=== PATIENT | female | born 1995 | race African-American/Black ===

== ENCOUNTER → 2023-08-08 | Emergency (ER) | payer SELFPAY ==
[~2023-08-08] MED LIST: BUPIVACAINE 0.25% PF 10 ML VIAL ONE; LIDOCAINE 1% 20 ML MDV ONE
--- OUTSIDE RECORDS SUMMARY | 2023-08-08 10:49 | XMS REPORT | Continuity of Care Document ---
Author Name Unknown Address [address] [facility] [address] [place] [address] [facility] Address [address] [facility] [address] [place] [address] Care Team Providers Care Medical Registrar Name Role Phone TANYA ALEMAN Attending Clinician Unavaillea Bustos Attending Clinician Unavailable FAINA LAUREANO Attending Clinician Unavailable JUHI GAUTHIER Attending Clinician Unavailable ERNST CHRISTIANSON Attending Clinician Unavailable DESI Attending Clinician Unavailab DENNY Guaman Attending Clinician Unavailamie Pan_Roberth Attending Clinician Unavailable RUTH MATAMOROS Attending Clinician Unavail able JESE BLAND MD(DO NOT USE) Attending Clinic moustapha Unavailable GARY RECIO Attending Clinician Unavailable PERCY SONI Attending Clinician Unavailable LENORA VALERO Attending Clinician Unavailable MARTHA LLAMAS Attending Clinician Unavailable CAMILA BROWNLEE Attending Clinician Unavailable ROBERT DENISE Attending Clinician Unavailable CHRIS BAZAN Attending Clinician UnaSAHRA Peters Attending Clinician Unavailable MACARIO MCGILL Attending Clinician UnavailMARIA DEL ROSARIO Herrera Attending Clinician Unavailab ALAN laws BA Attending Clinician Unavailable MARLENY DIAZ Attending Clinician Unavailab HERB Johnston Attending Clinician Unavailable Gerardo_Lenore Admitting Clinician Unavailable DESI Admitting Clinician Unavailab eusebia Bello Admitting Clinician Unavailable DENNY CARRILLO Admitting Clinician UnavailSAHRA Lyn Admitting Clinician Unavailable Payers Payer Name Policy Type Policy Number Effective Date Expirati on Date Source [place] [facility] [employer] [place]MEDICAID) [id number] [facility] [place] (MEDICA[place] [id number] 2016 00:00:00 Problems Condition Name Condition Details Condition Category Status Onset Date Resolution Date Last Treatment Date Treating Clinician Comments Source Uses depot contracept ion Uses Depot Contracept ion Problem Active 04-07 00:00: 00 [facility] Gynecologi c examinatio n Gynecologi c Examinatio n Problem Active 04-07 00:00: 00 [facility] Social History Smoking Status Start Date Stop Date Source Never Smoker [facility] Medications Ordered Medication Name Filled Medication Name Start Date Stop Date Current Medication? Ordering Clinician Indication Dosage Frequency Signature (SIG) Comments Components Source medroxyprog esterone 150 mg/mL intramuscul ar suspensionI nject 1 mL every 3 months by intramuscul ar route. medroxyprog esterone 150 mg/mL intramuscul ar suspensionI nject 1 mL every 3 months by intramuscul ar route. 2022-07 018 09:20: 44 No medroxypro gesterone 150 mg/mL intramuscu lar suspension Inject 1 mL every 3 months by intramuscu lar route. [facility] medroxyprog esterone 150 mg/mL intramuscul ar suspensionI nject 1 mL every 3 months by intramuscul ar route. medroxyprog esterone 150 mg/mL intramuscul ar suspensionI nject 1 mL every 3 months by intramuscul ar route. 17 14:49: 31 No medroxypro gesterone 150 mg/mL intramuscu lar suspension Inject 1 mL every 3 months by intramuscu lar route. [facility] Depo-Principal Cyber Engineer a 150 mg/mL intramuscul ar syringeInje ct 1 mL every 3 months by intramuscul ar route. Depo-Principal Cyber Engineer a 150 mg/mL intramuscul ar syringeInje ct 1 mL every 3 months by intramuscul ar route. 413 16:23: 49 No Depo-Prove ra 150 mg/mL intramuscu lar syringeInj ect 1 mL every 3 months by intramuscu lar route. [facility] Depo-Principal Cyber Engineer a 150 mg/mL intramuscul ar syringeInje ct 1 mL every 3 months by intramuscul ar route. [employer]Principal Cyber Engineer a 150 mg/mL intramuscul ar syringeInje ct 1 mL every 3 months by intramuscul ar route. 07-22 09:44: 02 No Depo-Prove ra 150 mg/mL intramuscu lar syringeInj ect 1 mL every 3 months by intramuscu lar route. [facility] medroxyprog esterone 150 mg/mL intramuscul ar suspensionI nject 1 mL every 3 months by intramuscul ar route. medroxyprog esterone 150 mg/mL intramuscul ar suspensionI nject 1 mL every 3 months by intramuscul ar route. 2021-07 0 15:06: 25 No medroxypro gesterone 150 mg/mL intramuscu lar suspension Inject 1 mL every 3 months by intramuscu lar route. [facility] medroxyprog esterone 150 mg/mL intramuscul ar suspensionI nject 1 mL every 3 months by intramuscul ar route. medroxyprog esterone 150 mg/mL intramuscul ar suspensionI nject 1 mL every 3 months by intramuscul ar route. 01-13 14:29: 33 No medroxypro gesterone 150 mg/mL intramuscu lar suspension Inject 1 mL every 3 months by intramuscu lar route. [facility] cyclobenzap rine 10 mg tablet TAKE 1 TABLET BY MOUTH EVERY 6 HOURS NEEDED FOR MUSCLE SPASMS cyclobenzap rine 10 mg tablet TAKE 1 TABLET BY MOUTH EVERY 6 HOURS NEEDED FOR MUSCLE SPASMS No cyclobenza ramon 10 mg tablet TAKE 1 TABLET BY MOUTH EVERY 6 HOURS NEEDED FOR MUSCLE SPASMS [facility] Depo-Principal Cyber Engineer a 150 mg/mL intramuscul ar syringe Inject 1 mL every 3 months by intramuscul ar route. Depo-Principal Cyber Engineer a 150 mg/mL intramuscul ar syringe Inject 1 mL every 3 months by intramuscul ar route. No 1mL Depo-Prove ra 150 mg/mL intramuscu lar syringe Inject 1 mL every 3 months by intramuscu lar route. [facility] medroxyprog esterone 150 mg/mL intramuscul ar suspension Inject 1 mL every 3 months by intramuscul ar route. medroxyprog esterone 150 mg/mL intramuscul ar suspension Inject 1 mL every 3 months by intramuscul ar route. No 1mL medroxypro gesterone 150 mg/mL intramuscu lar suspension Inject 1 mL every 3 months by intramuscu lar route. [facility] naproxen 500 mg tablet TAKE ONE (1) TABLET(S) BY MOUTH TWICE A DAY FOR PAIN. naproxen 500 mg tablet TAKE ONE (1) TABLET(S) BY MOUTH TWICE A DAY FOR PAIN. No naproxen 500 mg tablet TAKE ONE (1) TABLET(S) BY MOUTH TWICE A DAY FOR PAIN. [facility] oseltamivir 75 mg capsule TAKE ONE (1) CAPSULE(S) BY MOUTH TWICE A DAY FOR FLU. oseltamivir 75 mg capsule TAKE ONE (1) CAPSULE(S) BY MOUTH TWICE A DAY FOR FLU. No oseltamivi r 75 mg capsule TAKE ONE (1) CAPSULE(S) BY MOUTH TWICE A DAY FOR FLU. [facility] tinidazole 500 mg tablet TAKE 4 TABLETS BY MOUTH EVERY DAY FOR 2 DAYS DIRECTED tinidazole 500 mg tablet TAKE 4 TABLETS BY MOUTH EVERY DAY FOR 2 DAYS DIRECTED No tinidazole 500 mg tablet TAKE 4 TABLETS BY MOUTH EVERY DAY FOR 2 DAYS DIRECTED [facility] cyclobenzap rine 10 mg tablet TAKE 1 TABLET BY MOUTH EVERY 6 HOURS NEEDED FOR MUSCLE SPASMS cyclobenzap rine 10 mg tablet TAKE 1 TABLET BY MOUTH EVERY 6 HOURS NEEDED FOR MUSCLE SPASMS No cyclobenza ramon 10 mg tablet TAKE 1 TABLET BY MOUTH EVERY 6 HOURS NEEDED FOR MUSCLE SPASMS [facility] medroxyprog esterone 150 mg/mL intramuscul ar suspension Inject 1 mL every 3 months by intramuscul ar route. medroxyprog esterone 150 mg/mL intramuscul ar suspension Inject 1 mL every 3 months by intramuscul ar route. No 1mL medroxypro gesterone 150 mg/mL intramuscu lar suspension Inject 1 mL every 3 months by intramuscu lar route. [facility] naproxen 500 mg tablet TAKE ONE (1) TABLET(S) BY MOUTH TWICE A DAY FOR PAIN. naproxen 500 mg tablet TAKE ONE (1) TABLET(S) BY MOUTH TWICE A DAY FOR PAIN. No naproxen 500 mg tablet TAKE ONE (1) TABLET(S) BY MOUTH TWICE A DAY FOR PAIN. [facility] ciprofloxac in 500 mg tablet TAKE 1 TABLET BY MOUTH TWICE DAILY FOR INFECTION ciprofloxac in 500 mg tablet TAKE 1 TABLET BY MOUTH TWICE DAILY FOR INFECTION No ciprofloxa krysten 500 mg tablet TAKE 1 TABLET BY MOUTH TWICE DAILY FOR INFECTION [facility] Depo-Principal Cyber Engineer a 150 mg/mL intramuscul ar syringe Inject 1 mL every 3 months by intramuscul ar route. Depo-Principal Cyber Engineer a 150 mg/mL intramuscul ar syringe Inject 1 mL every 3 months by intramuscul ar route. No 1mL Depo-Prove ra 150 mg/mL intramuscu lar syringe Inject 1 mL every 3 months by intramuscu lar route. [facility] medroxyprog esterone 150 mg/mL intramuscul ar suspension Inject 1 mL every 3 months by intramuscul ar route. medroxyprog esterone 150 mg/mL intramuscul ar suspension Inject 1 mL every 3 months by intramuscul ar route. No 1mL medroxypro gesterone 150 mg/mL intramuscu lar suspension Inject 1 mL every 3 months by intramuscu lar route. [facility] naproxen 500 mg tablet TAKE 1 TABLET BY MOUTH TWICE DAILY FOR PAIN naproxen 500 mg tablet TAKE 1 TABLET BY MOUTH TWICE DAILY FOR PAIN No naproxen 500 mg tablet TAKE 1 TABLET BY MOUTH TWICE DAILY FOR PAIN [facility] ondansetron HCl 4 mg tablet TAKE 1 TABLET BY MOUTH EVERY 8 HOURS NEEDED FOR NAUSEA OR VOMITING ondansetron HCl 4 mg tablet TAKE 1 TABLET BY MOUTH EVERY 8 HOURS NEEDED FOR NAUSEA OR VOMITING No ondansetro n HCl 4 mg tablet TAKE 1 TABLET BY MOUTH EVERY 8 HOURS NEEDED FOR NAUSEA OR VOMITING [facility] cephalexin 250 mg capsule TAKE 1 CAPSULE BY MOUTH 4 TIMES DAILY cephalexin 250 mg capsule TAKE 1 CAPSULE BY MOUTH 4 TIMES DAILY No cephalexin 250 mg capsule TAKE 1 CAPSULE BY MOUTH 4 TIMES DAILY [facility] ciprofloxac in 500 mg tablet TAKE 1 TABLET BY MOUTH TWICE DAILY FOR INFECTION ciprofloxac in 500 mg tablet TAKE 1 TABLET BY MOUTH TWICE DAILY FOR INFECTION No ciprofloxa krysten 500 mg tablet TAKE 1 TABLET BY MOUTH TWICE DAILY FOR INFECTION [facility] Depo-Principal Cyber Engineer a 150 mg/mL intramuscul ar syringe Inject 1 mL every 3 months by intramuscul ar route. Depo-Principal Cyber Engineer a 150 mg/mL intramuscul ar syringe Inject 1 mL every 3 months by intramuscul ar route. No 1mL Depo-Prove ra 150 mg/mL intramuscu lar syringe Inject 1 mL every 3 months by intramuscu lar route. [facility] medroxyprog esterone 150 mg/mL intramuscul ar suspension Inject 1 mL every 3 months by intramuscul ar route. medroxyprog esterone 150 mg/mL intramuscul ar suspension Inject 1 mL every 3 months by intramuscul ar route. No 1mL medroxypro gesterone 150 mg/mL intramuscu lar suspension Inject 1 mL every 3 months by intramuscu lar route. [facility] naproxen 500 mg tablet TAKE 1 TABLET BY MOUTH TWICE DAILY FOR PAIN naproxen 500 mg tablet TAKE 1 TABLET BY MOUTH TWICE DAILY FOR PAIN No naproxen 500 mg tablet TAKE 1 TABLET BY MOUTH TWICE DAILY FOR PAIN [facility] ondansetron HCl 4 mg tablet TAKE 1 TABLET BY MOUTH EVERY 8 HOURS NEEDED FOR NAUSEA OR VOMITING ondansetron HCl 4 mg tablet TAKE 1 TABLET BY MOUTH EVERY 8 HOURS NEEDED FOR NAUSEA OR VOMITING No ondansetro n HCl 4 mg tablet TAKE 1 TABLET BY MOUTH EVERY 8 HOURS NEEDED FOR NAUSEA OR VOMITING [facility] medroxyprog esterone 150 mg/mL intramuscul ar suspension Inject 1 mL every 3 months by intramuscul ar route. medroxyprog esterone 150 mg/mL intramuscul ar suspension Inject 1 mL every 3 months by intramuscul ar route. No 1mL medroxypro gesterone 150 mg/mL intramuscu lar suspension Inject 1 mL every 3 months by intramuscu lar route. [facility] medroxyprog esterone 150 mg/mL intramuscul ar suspension Inject 1 mL every 3 months by intramuscul ar route. medroxyprog esterone 150 mg/mL intramuscul ar suspension Inject 1 mL every 3 months by intramuscul ar route. No 1mL medroxypro gesterone 150 mg/mL intramuscu lar suspension Inject 1 mL every 3 months by intramuscu lar route. [facility] medroxyprog esterone 150 mg/mL intramuscul ar syringe medroxyprog esterone 150 mg/mL intramuscul ar syringe No medroxypro gesterone 150 mg/mL intramuscu lar syringe [facility] medroxyprog esterone 150 mg/mL intramuscul ar suspension Inject 1 mL every 3 months by intramuscul ar route. medroxyprog esterone 150 mg/mL intramuscul ar suspension Inject 1 mL every 3 months by intramuscul ar route. No 1mL medroxypro gesterone 150 mg/mL intramuscu lar suspension Inject 1 mL every 3 months by intramuscu lar route. [facility] medroxyprog esterone 150 mg/mL intramuscul ar syringe Inject 1 mL every 3 months by intramuscul ar route. medroxyprog esterone 150 mg/mL intramuscul ar syringe Inject 1 mL every 3 months by intramuscul ar route. No medroxypro gesterone 150 mg/mL intramuscu lar syringe Inject 1 mL every 3 months by intramuscu lar route. [facility] Vital Signs Vital Name Observation Time Observation Value Comments S ource BP Diastolic 2023-07-28 00:00:00 93 mm[Hg] [facility] BMI (Body Mass Index) 2023-07-28 00:00:00 31.4 kg/m2 [facility] BP Systolic 2023-07-28 00:00:00 134 mm[Hg] [facility] Height 2023-07-28 00:00:00 70 [in_i] [facility] Body Weight 2023-07-28 00:00:00 218.6 [lb_av] [facility] BMI (Body Mass Index) 2023-04-27 00:00:00 31.8 kg/m2 [facility] BP Systolic 2023-04-27 00:00:00 124 mm[Hg] [facility] Body Weight 2023-04-27 00:00:00 221.3 [lb_av] [facility] Height 2023-04-27 00:00:00 70 [in_i] [facility] BP Diastolic 2023-04-27 00:00:00 83 mm[Hg] [facility] BP Diastolic 2023-01-24 00:00:00 96 mm[Hg] [facility] Height 2023-01-24 00:00:00 70 [in_i] [facility] BMI (Body Mass Index) 2023-01-24 00:00:00 31.8 kg/m2 [facility] BP Systolic 2023-01-24 00:00:00 133 mm[Hg] [facility] Body Weight 2023-01-24 00:00:00 221.3 [lb_av] [facility] Height 2022-10-21 00:00:00 70 [in_i] [facility] BP Diastolic 2022-07-22 00:00:00 79 mm[Hg] [facility] Height 2022-07-22 00:00:00 70 [in_i] [facility] BMI (Body Mass Index) 2022-07-22 00:00:00 30.1 kg/m2 [facility] BP Systolic 2022-07-22 00:00:00 129 mm[Hg] [facility] Body Weight 2022-07-22 00:00:00 210 [lb_av] [facility] BP Diastolic 2022-04-15 00:00:00 96 mm[Hg] [facility] Height 2022-04-15 00:00:00 70 [in_i] [facility] BMI (Body Mass Index) 2022-04-15 00:00:00 29.9 kg/m2 [facility] BP Systolic 2022-04-15 00:00:00 137 mm[Hg] [facility] Body Weight 2022-04-15 00:00:00 208.2 [lb_av] [facility] BP Diastolic 2022-01-13 00:00:00 84 mm[Hg] [facility] Height 2022-01-13 00:00:00 70 [in_i] [facility] BMI (Body Mass Index) 2022-01-13 00:00:00 28.3 kg/m2 [facility] BP Systolic 2022-01-13 00:00:00 123 mm[Hg] [facility] Body Weight 2022-01-13 00:00:00 197.3 [lb_av] [facility] BP Diastolic 2021-10-12 00:00:00 91 mm[Hg] [facility] Height 2021-10-12 00:00:00 70 [in_i] [facility] BMI (Body Mass Index) 2021-10-12 00:00:00 26.8 kg/m2 [facility] BP Systolic 2021-10-12 00:00:00 126 mm[Hg] [facility] Body Weight 2021-10-12 00:00:00 186.7 [lb_av] [facility] BP Diastolic 2021-07-14 00:00:00 92 mm[Hg] [facility] Height 2021-07-14 00:00:00 70 [in_i] [facility] BMI (Body Mass Index) 2021-07-14 00:00:00 26.1 kg/m2 [facility] BP Systolic 2021-07-14 00:00:00 137 mm[Hg] [facility] Body Weight 2021-07-14 00:00:00 182 [lb_av] [facility] BP Diastolic 2021-04-13 00:00:00 87 mm[Hg] [facility] Height 2021-04-13 00:00:00 70 [in_i] [facility] BMI (Body Mass Index) 2021-04-13 00:00:00 26.5 kg/m2 [facility] BP Systolic 2021-04-13 00:00:00 128 mm[Hg] [facility] Body Weight 2021-04-13 00:00:00 184.9 [lb_av] [facility] BP Diastolic 2021-01-09 00:00:00 88 mm[Hg] [facility] Height 2021-01-09 00:00:00 70 [in_i] [facility] BMI (Body Mass Index) 2021-01-09 00:00:00 25.7 kg/m2 [facility] BP Systolic 2021-01-09 00:00:00 126 mm[Hg] [facility] Body Weight 2021-01-09 00:00:00 179 [lb_av] [facility] Height 2020-10-10 00:00:00 70 [in_i] [facility] BMI (Body Mass Index) 2020-10-10 00:00:00 24.1 kg/m2 [facility] BP Systolic 2020-10-10 00:00:00 124 mm[Hg] [facility] Body Weight 2020-10-10 00:00:00 167.7 [lb_av] [facility] BP Diastolic 2020-10-10 00:00:00 74 mm[Hg] [facility] BP Diastolic 2020-07-09 00:00:00 74 mm[Hg] [facility] Height 2020-07-09 00:00:00 70 [in_i] [facility] BMI (Body Mass Index) 2020-07-09 00:00:00 24.8 kg/m2 [facility] BP Systolic 2020-07-09 00:00:00 124 mm[Hg] [facility] Body Weight 2020-07-09 00:00:00 172.5 [lb_av] [facility] BP Diastolic 2020-04-07 00:00:00 83 mm[Hg] [facility] Height 2020-04-07 00:00:00 70 [in_i] [facility] BMI (Body Mass Index) 2020-04-07 00:00:00 24.6 kg/m2 [facility] BP Systolic 2020-04-07 00:00:00 125 mm[Hg] [facility] Body Weight 2020-04-07 00:00:00 171.2 [lb_av] [facility] BP Diastolic 2019-12-28 00:00:00 84 mm[Hg] [facility] Height 2019-12-28 00:00:00 70 [in_i] [facility] BMI (Body Mass Index) 2019-12-28 00:00:00 26.4 kg/m2 [facility] BP Systolic 2019-12-28 00:00:00 138 mm[Hg] [facility] Body Weight 2019-12-28 00:00:00 184.2 [lb_av] [facility] BP Diastolic 2019-09-24 00:00:00 92 mm[Hg] [facility] Height 2019-09-24 00:00:00 70 [in_i] [facility] BMI (Body Mass Index) 2019-09-24 00:00:00 24.7 kg/m2 [facility] BP Systolic 2019-09-24 00:00:00 126 mm[Hg] [facility] Body Weight 2019-09-24 00:00:00 172.1 [lb_av] [facility] BP Diastolic 2019-06-22 00:00:00 73 mm[Hg] [facility] Height 2019-06-22 00:00:00 70 [in_i] [facility] BMI (Body Mass Index) 2019-06-22 00:00:00 24.7 kg/m2 [facility] BP Systolic 2019-06-22 00:00:00 130 mm[Hg] [facility] Body Weight 2019-06-22 00:00:00 172 [lb_av] [facility] Height 2019-03-20 00:00:00 70 [in_i] [facility] BMI (Body Mass Index) 2019-03-20 00:00:00 26.5 kg/m2 [facility] Body Weight 2019-03-20 00:00:00 185 [lb_av] [facility] BP Diastolic 2019-02-12 00:00:00 93 mm[Hg] [facility] Height 2019-02-12 00:00:00 70 [in_i] [facility] BMI (Body Mass Index) 2019-02-12 00:00:00 29.3 kg/m2 [facility] BP Systolic 2019-02-12 00:00:00 134 mm[Hg] [facility] Body Weight 2019-02-12 00:00:00 204 [lb_av] [facility] BP Diastolic 2019-02-05 00:00:00 88 mm[Hg] [facility] Height 2019-02-05 00:00:00 70 [in_i] [facility] BMI (Body Mass Index) 2019-02-05 00:00:00 29 kg/m2 [facility] BP Systolic 2019-02-05 00:00:00 124 mm[Hg] [facility] Body Weight 2019-02-05 00:00:00 202.3 [lb_av] [facility] BP Diastolic 2019-01-26 00:00:00 77 mm[Hg] [facility] Height 2019-01-26 00:00:00 70 [in_i] [facility] BMI (Body Mass Index) 2019-01-26 00:00:00 29.1 kg/m2 [facility] BP Systolic 2019-01-26 00:00:00 121 mm[Hg] [facility] Body Weight 2019-01-26 00:00:00 203.1 [lb_av] [facility] BP Diastolic 2019-01-12 00:00:00 83 mm[Hg] [facility] Height 2019-01-12 00:00:00 70 [in_i] [facility] BP Systolic 2019-01-12 00:00:00 124 mm[Hg] [facility] Body Weight 2019-01-12 00:00:00 198 [lb_av] [facility] BP Diastolic 2018-12-28 00:00:00 81 mm[Hg] [facility] Height 2018-12-28 00:00:00 70 [in_i] [facility] BMI (Body Mass Index) 2018-12-28 00:00:00 28 kg/m2 [facility] BP Systolic 2018-12-28 00:00:00 126 mm[Hg] [facility] Body Weight 2018-12-28 00:00:00 195 [lb_av] [facility] BP Diastolic 2018-12-14 00:00:00 85 mm[Hg] [facility] Height 2018-12-14 00:00:00 70 [in_i] [facility] BMI (Body Mass Index) 2018-12-14 00:00:00 27.3 kg/m2 [facility] BP Systolic 2018-12-14 00:00:00 131 mm[Hg] [facility] Body Weight 2018-12-14 00:00:00 190 [lb_av] [facility] Procedures Procedure Date / Time Performed Performing Clinicia n Source US, obstetric, limited 2019-01-26 00:00:00 [facility] US, obstetric, limited 2018-12-28 00:00:00 [facility] Upper GI Endoscopy [facility] Cholecystectomy [facility] Plan of Care Planned Activity Planned Date Details Comments Source Diagnostic Test Pending 2023-07-28 00:00:00 test, urine [code = test, urine] [facility] Future Appointment 2023-10-28 09:00:00 Denny Carrillo, [address]; [address], [place] [address] [facility] Instructions [facility] Encounters Start Date/Time End Date/Time Encounter Type Admission Type Attending [facility] Care Facility Care Department Encounter ID Source 2023-08-07 14:26:00 2023-08-07 16:16:00 emergency [facility] [id number] 2023-08-07 14:26:00 2023-08-07 16:16:00 Emergency ER TANYA ALEMAN [facility] [id number] [facility] 2023-07-28 00:00:00 2023-07-28 00:00:00 Outpatient [id number] [facility] 2023-07-28 00:00:00 2023-07-28 00:00:00 Macario Lepe MD: [address], [address], [place] [address] , Ph. [phone] [facility] [id number] [facility] 2023-07-27 00:00:00 2023-07-27 00:00:00 Outpatient [id number] [facility] 2023-07-24 10:30:00 2023-07-24 11:26:00 emergency [facility] [id number] 2023-07-24 10:30:00 2023-07-24 11:26:00 Emergency ER TANYA ALEMAN [facility] [id number] [facility] 2023-05-18 18:59:00 2023-05-18 20:10:00 emergency [facility] [id number] 2023-05-18 18:59:00 2023-05-18 20:10:00 Emergency ER FAINA LAUREANO [facility] [id number] [facility] 2023-04-27 00:00:00 2023-04-27 00:00:00 GHASSAN Castro: [address], [address], [place] [address] , Ph. [phone] [facility] [id number] [facility] 2023-02-03 00:00:00 2023-02-03 00:00:00 Outpatient [id number] [facility] 2023-01-24 00:00:00 2023-01-24 00:00:00 Outpatient [id number] [facility] 2023-01-24 00:00:00 2023-01-24 00:00:00 Denny Carrillo MD: [address], [address], [place] [address] , Ph. [phone] [facility] [id number] [facility] 2022-10-21 00:00:00 2022-10-21 00:00:00 Outpatient [facility] [id number] [facility] 2022-10-21 00:00:00 2022-10-21 00:00:00 Denny Carrillo MD: [address], [address], [place] [address] , Ph. [phone] [facility] [id number] [facility] 2022-09-27 20:17:00 2022-09-27 23:20:00 Emergency ER JUHI GAUTHIER [facility] [id number] [facility] 2022-09-07 00:00:00 2022-09-07 00:00:00 Outpatient [facility] MMG [id number] [facility] 2022-07-22 00:00:00 2022-07-22 00:00:00 Denny Carrillo MD: [address] [place] [id number] , Ph. [phone] [facility] [id number] [facility] 2022-07-18 18:47:00 2022-07-18 21:25:00 Emergency ER [facility] [id number] [facility] 2022-06-15 00:00:00 2022-06-15 00:00:00 Outpatient Rutledge_L MMG MM[facility] [id number] 0111 [facility] 2022-06-15 00:00:00 2022-06-15 00:00:00 Outpatient Rutledge_L MMG MMG [id number] 0112 [facility] 2022-04-15 00:00:00 2022-04-15 00:00:00 Outpatient Rutledge_L MMG MMG [id number] 1006 [facility] 2022-04-15 00:00:00 2022-04-15 00:00:00 Denny Carrillo MD: 600 [facility] [address] [place] [address] , Ph. [phone] [facility] [id number] [facility] 2022-01-13 00:00:00 2022-01-13 00:00:00 Macario Lepe MD: [address] [facility] [address], [place] [address] , Ph. [phone] Rutledge_L [facility] [id number] 0706 [facility] 2021-11-08 20:21:00 2021-11-08 21:53:00 Emergency ER ERNST [facility] [id number] [facility] 2021-11-02 03:06:00 2021-11-02 03:06:00 Outpatient SACHAEDUAR PEREZ [facility] [id number] 0425 [facility] 2021-10-12 00:00:00 2021-10-12 00:00:00 Macario Lepe MD: [address] [facility] [address] [place] [address] , Ph. [phone] Antonialedge_L [facility] [id number] 0404 [facility] 2021-07-14 09:46:00 2021-07-14 09:46:00 Outpatient DENNY GIRALDO [facility] [id number] [facility] 2021-07-14 00:00:00 2021-07-14 00:00:00 Denny Carrillo MD: [address] [facility] [address], [place] [address] , Ph. [phone] Antonialedge_L [facility] [id number] 0104 [facility] 2021-04-13 00:00:00 2021-04-13 00:00:00 Macario Lepe MD: [address] [facility] Suite [facility], [place] [address] , Ph. [phone] Viviane_Roberth [facility] [address] 1004 [facility] 2021-03-31 15:18:00 2021-03-31 16:41:00 Emergency ER RUTH [facility]OS [facility] [id number] [facility] 2021-01-09 00:00:00 2021-01-09 00:00:00 Macario Lepe MD: [address] [address] , Ph. [phone] G_Pappas [facility] [id number] 0702 [facility] 2021-01-07 11:51:00 2021-01-07 12:35:00 Emergency ER JESE BLAND [facility] [id number] [facility] 2020-10-10 00:00:00 2020-10-10 00:00:00 Macario Lepe MD: [address] [address] , Ph. [phone] G_Pappas [facility] [id number] 0402 [facility] 2020-09-23 03:26:00 2020-09-23 03:26:00 Outpatient G_Pappas [facility] [id number] 0316 [facility] 2020-08-06 12:06:00 2020-08-06 14:13:00 Emergency ER GARY RECIO [facility] [id number] [facility] 2020-07-09 00:00:00 2020-07-09 00:00:00 Macario Lepe MD: [address] [address] , Ph. [phone] G_Pappas [facility] [id number] 1230 [facility] 2020-05-28 02:24:00 2020-05-28 02:24:00 Outpatient G_Pappas [facility] [id number] [facility] 2020-04-07 00:00:00 2020-04-07 00:00:00 LONDON Cervantes: [address] [address] , Ph. [phone] G_Pappas [facility] [id number] 0928 [facility] 2020-03-31 09:36:00 2020-03-31 09:36:00 Outpatient G_Pappas MM[facility] MM[facility] [id number] 0921 [facility] 2019-12-30 03:32:00 2019-12-30 03:32:00 Outpatient G_Pappas [facility] [id number] 0621 [facility] 2019-12-28 00:00:00 2019-12-28 00:00:00 Lenora Valero JAIME: [address] [facility] [address] [place] [address] , Ph. [phone] G_Pappas [facility] [id number] 0619 [facility] 2019-11-21 04:41:00 2019-11-21 07:25:00 Emergency ER PERCY SONI [facility] [id number] [facility] 2019-11-03 10:43:00 2019-11-03 10:43:00 Outpatient G_Pappas MM[facility] MMG [id number] 0425 [facility] 2019-09-26 09:00:00 2019-09-26 09:00:00 Outpatient G_Pappas [facility] [id number] 0318 [facility] 2019-09-24 00:00:00 2019-09-24 00:00:00 Macario Lepe MD: [address] [facility] [address] [place] [address] , Ph. [phone] [facility] [id number] 0316 [facility] 2019-07-07 01:09:00 2019-07-07 01:09:00 Outpatient G_Pappas MM[facility] [id number] 1228 [facility] 2019-06-22 00:00:00 2019-06-22 00:00:00 LONDON Cervantes: [address], [place] [address] , Ph. [phone] [facility] [id number] 1213 [facility] 2019-04-07 01:24:00 2019-04-07 03:22:00 Emergency ER [facility] [id number] [facility] 2019-03-20 00:00:00 2019-03-20 00:00:00 Denny Carrillo MD: [address], [place] [address] , Ph. [phone] [facility] [id number] 0910 [facility] 2019-02-19 04:28:00 2019-02-20 16:08:00 Inpatient DENNY GIRALDO [facility] [id number] [facility] 2019-02-12 00:00:00 2019-02-12 00:00:00 Denny Carrillo MD: [address], [address], [place] [address] , Ph. [phone] [facility] [id number] 0805 [facility] 2019-02-05 10:22:00 2019-02-05 13:25:00 Emergency ER GERARDODEXTERDENNY [facility] [id number] [facility] 2019-02-05 00:00:00 2019-02-05 00:00:00 Denny Carrillo MD: [address], [address], [place] [address] , Ph. [phone] [facility] [id number] 0729 [facility] 2019-01-26 00:00:00 2019-01-26 00:00:00 LONDON Cervantes: [address], [address], [place] [address] , Ph. [phone] [facility] [id number] 0719 [facility] 2019-01-12 10:46:00 2019-01-12 10:46:00 Outpatient DOMINIQUE CARRILLO DENNY [facility] [id number] [facility] 2019-01-12 00:00:00 2019-01-12 00:00:00 Denny Carrillo MD: [address], [place] [address] , Ph. [phone] [facility] [id number] 0705 [facility] 2018-12-28 11:34:00 2018-12-28 11:34:00 Outpatient LENORA NOLASCO [facility] [id number] [facility] 2018-12-28 00:00:00 2018-12-28 00:00:00 Lenora Valero [facility]: [address], [place] [address] , Ph. [phone] [facility] [id number] 0620 [facility] 2018-12-14 00:00:00 2018-12-14 00:00:00 Denny Carrillo MD: [address], [place] [address] , Ph. [phone] [facility] [id number] 0606 [facility] 2018-12-06 13:19:00 2018-12-06 15:15:00 Emergency ER DENNY CARRILLO [facility] [id number] [facility] 2018-11-29 09:45:00 2018-11-29 09:45:00 Outpatient MARTHA REYES [facility] [id number] [facility] 2018-10-28 08:46:00 2018-10-28 10:49:00 Emergency ER CAMILA BROWNLEE [facility] [id number] [facility] 2018-09-12 11:37:00 2018-09-12 11:37:00 Outpatient MARTHA REYES [facility] [id number] [facility] 2018-08-22 11:07:00 2018-08-22 11:07:00 Outpatient ROBERT ARELLANO [facility] [id number] [facility] 2018-08-01 14:34:00 2018-08-01 14:34:00 Outpatient ROBERT ARELLANO [facility] [id number] [facility] 2018-07-27 15:50:00 2018-07-27 15:50:00 Outpatient ROBERT ARELLANO [facility] [id number] [facility] 2018-06-26 13:37:00 2018-06-26 13:37:00 Outpatient CHRIS GRAHAM [facility] [id number] [facility] 2016-11-04 10:40:00 2016-11-06 10:08:00 Inpatient ER SAHRA CAGLE [facility] [id number] [facility] 2016-10-28 10:01:00 2016-10-28 10:15:00 Emergency ER DENNY CARRILLO [facility] [id number] [facility] 2016-10-27 02:35:00 2016-10-27 10:00:00 Emergency ER MACARIO MCGILL [facility] [id number] [facility] 2016-10-17 15:23:00 2016-10-17 19:55:00 Emergency ER DENNY CARRILLO [facility] [id number] [facility] 2016-10-08 09:35:00 2016-10-08 09:35:00 Outpatient ROBERT ARELLANO [facility] [id number] [facility] 2016-09-25 15:02:00 2016-09-25 15:02:00 Outpatient DENNY GIRALDO [facility] [id number] [facility] 2016-08-21 12:51:00 2016-08-21 16:17:00 Emergency ER MARIA DEL ROSARIO SALCEDO [facility] [id number] [facility] 2016-08-09 09:29:00 2016-08-09 09:29:00 Outpatient DENNY GIRALDO [facility] [id number] [facility] 2016-06-26 12:08:00 2016-06-26 14:37:00 Emergency ER MARIA DEL ROSARIO SALCEDO [facility] [id number] [facility] 2016-06-06 14:20:00 2016-06-06 15:57:00 Emergency ER MARIA DEL ROSARIO SALCEDO [facility] [id number] [facility] 2015-11-22 18:29:00 2015-11-22 20:05:00 Emergency ER ALAN LAWRENCE [facility] [id number] [facility] 2015-01-24 18:45:00 2015-01-24 22:17:00 Emergency ER GARY RECIO [facility] [id number] [facility] 2014-12-30 22:33:00 2014-12-31 02:28:00 Emergency ER MARLENY DIAZ [facility] [id number] [facility] 2014-11-24 10:32:00 2014-11-24 13:50:00 Emergency ER HERB RAMIREZ [facility] [id number] [facility] Results Test Description Test Time Test Comments Results Result Co mments Source [facility] [id number] 09:21:17* Test Item Value Reference Range Interpretation Comme nts Test (test code = Test) negative [facility], [id number] 14:32:20* Test Item Value Reference Range Interpretation Comme nts Test (test code = Test) negative [facility], [id number] 16:23:56* Test Item Value Reference Range Interpretation Comme nts Test (test code = Test) negative [facility], [id number] 09:44:28* Test Item Value Reference Range Interpretation Comme nts Test (test code = Test) negative [facility], [id number] 15:06:57* Test Item Value Reference Range Interpretation Comme nts Test (test code = Test) negative [facility], [id number] 14:42:00* Test Item Value Reference Range Interpretation Comme nts Test (test code = Test) negative [facility], [id number] 15:21:15* Test Item Value Reference Range Interpretation Comme nts Test (test code = Test) negative [facility], [id number] 10:39:00* Test Item Value Reference Range Interpretation Comme nts Test (test code = Test) negative [facility], [id number] 14:48:14* Test Item Value Reference Range Interpretation Comme nts Test (test code = Test) negative [facility], [id number] 14:03:00* Test Item Value Reference Range Interpretation Comme nts Test (test code = Test) negative [facility], [id number] 14:27:26* Test Item Value Reference Range Interpretation Comme nts Test (test code = Test) negative [facility], [id number] 16:47:00* Test Item Value Reference Range Interpretation Comme nts Test (test code = Test) negative [facility] Differential panel - [id number] 04:19:00 * Test Item Value Reference Range Interpretation Comme nts white blood count (test code = white blood count) 12.1 K/uL 4.0-11.5 red blood count (test code = red blood count) 4.02 M/uL 3.80-5.20 hemoglobin (test code = hemoglobin) 8.8 g/dL 10.5-15.7 L hematocrit (test code = hematocrit) 29.6 % 34.0-50.0 L Erythrocyte mean corpuscular volume [Entitic volume] (test code = 31187-8) 73.6 fL 86-100 L mean corpuscular hemoglobin (test code = mean corpuscular hemoglobin) 21.9 pg 26.2-33.4 L mean corpuscular HGB conc (t est code = mean corpuscular HGB conc) 29.7 g/dL 30-34 L red cell distribution width (test code = red cell distribution width) 15.4 % 12.0-15.5 platelet count (test code = platelet count) 283 K/uL 165-450 mean platelet volume (test c ode = mean platelet volume) 8.9 fL 9.4-12.6 L Neutrophils.segmented/100 leukocytes in Blood (test code = 80827-1) 71.3 % 44.4-80.1 Ig% (test code = Ig%) 0.4 % 0.0-0.4 lymphocyte% (test code = lymphocyte%) 18.3 % 10.0-50.0 mono % (test code = mono %) 9.2 % 3.6-12.0 eos % (test code = eos %) 0.6 % 0.0-5.4 Basophils/100 leukocytes in Unspecified specimen (test code = 25580-1) 0.2 % 0.1-1.2 absolute neutrophil count (t est code = absolute neutrophil count) 8.63 K/uL 1.56-6.13 H Ig# (test code = Ig#) 0.1 K/uL 0.0-0.03 H Lymphocytes [#/volume] in Unspecified specimen by Automated count (test code = 85987-7) 2.2 K/uL 1.18-3.74 mono # (test code = mono #) 1.12 K/uL 0.24-0.86 H eos # (test code = eos #) 0.07 K/uL 0.04-0.36 basophil # (test code = baso aquilino #) 0.02 K/uL 0.01-0.08 NRBC% (test code = NRBC%) 0 /100 WBC 0-0.2 NRBC# (test code = NRBC#) 0 K/uL [facility] Ig gvn [id number] 04:19:00* Test Item Value Reference Range Interpretation Comme nts Rh [Type] in Blood (test cod e = 58808-4) 3+ ABO and Rh group panel - Blo od (test code = 32144-2) O positive results (test code = results) [facility] W Auto Differential panel - [id number] 03:10:00 * Test Item Value Reference Range Interpretation Comme nts white blood count (test code = white blood count) 10.0 K/uL 4.0-11.5 red blood count (test code = red blood count) 4.55 M/uL 3.80-5.20 hemoglobin (test code = hemoglobin) 9.8 g/dL 10.5-15.7 L hematocrit (test code = hematocrit) 33.7 % 34.0-50.0 L Erythrocyte mean corpuscular volume [Entitic volume] (test code = 00156-0) 74.1 fL 86-100 L mean corpuscular hemoglobin (test code = mean corpuscular hemoglobin) 21.5 pg 26.2-33.4 L mean corpuscular HGB conc (t est code = mean corpuscular HGB conc) 29.1 g/dL 30-34 L red cell distribution width (test code = red cell distribution width) 15.2 % 12.0-15.5 platelet count (test code = platelet count) 324 K/uL 165-450 mean platelet volume (test c ode = mean platelet volume) 9.1 fL 9.4-12.6 L Neutrophils.segmented/100 leukocytes in Blood (test code = 33073-4) 66.6 % 44.4-80.1 Ig% (test code = Ig%) 0.3 % 0.0-0.4 lymphocyte% (test code = lymphocyte%) 22.1 % 10.0-50.0 mono % (test code = mono %) 10.2 % 3.6-12.0 eos % (test code = eos %) 0.5 % 0.0-5.4 Basophils/100 leukocytes in Unspecified specimen (test code = 26924-0) 0.3 % 0.1-1.2 absolute neutrophil count (t est code = absolute neutrophil count) 6.67 K/uL 1.56-6.13 H Ig# (test code = Ig#) 0.0 K/uL 0.0-0.03 Lymphocytes [#/volume] in Unspecified specimen by Automated count (test code = 53718-3) 2.2 K/uL 1.18-3.74 mono # (test code = mono #) 1.02 K/uL 0.24-0.86 H eos # (test code = eos #) 0.05 K/uL 0.04-0.36 basophil # (test code = baso aquilino #) 0.03 K/uL 0.01-0.08 NRBC% (test code = NRBC%) 0 /100 WBC 0-0.2 NRBC# (test code = NRBC#) 0 [facility] [Presence] in Serum by [id number] 03:10:00* Test Item Value Reference Range Interpretation Comme nts Reagin Ab [Presence] in Seru m by RPR (test code = 43174-9) nonreactive nonreactive [facility] virus surface Ag [Presence] in Serum 2019-02-19 03:10:00* Test Item Value Reference Range Interpretation Comme nts .hepatitis B surface antigen (test code = .hepatitis B surface antigen) negative negative [facility] macro (dipstick) panel - [id number] 14:52:28* Test Item Value Reference Range Interpretation Comme nts Leukocytes (test code = Leukocytes) Negative Nitrite (test code = Nitrite) negative Urobilinogen (test code = Urobilinogen) 1 Protein (test code = Protein) 100 pH (test code = pH) 7.0 Blood (test code = Blood) Non-Hemolyzed: Trace Specific [place] (test code = Specific [place]) 1.025 Ketone (test code = Ketone) Negative Bilirubin (test code = Bilirubin) Small Glucose (test code = Glucose) Negative Appearance (test code = Appearance) Clear Color (test code = Color) Dark Yellow [facility] macro (dipstick) panel - [id number] 10:07:00* Test Item Value Reference Range Interpretation Comme nts Leukocytes (test code = Leukocytes) Trace Nitrite (test code = Nitrite) negative Urobilinogen (test code = Urobilinogen) 1 Protein (test code = Protein) 30 pH (test code = pH) 7.0 Blood (test code = Blood) Hemolyzed: Trace Specific [place] (test code = Specific [place]) 1.025 Ketone (test code = Ketone) Negative Bilirubin (test code = Bilirubin) Negative Glucose (test code = Glucose) Negative Appearance (test code = Appearance) Clear Color (test code = Color) Yellow [facility] complete panel - [id number] 08:30:00* Test Item Value Reference Range Interpretation Comme nts Color of Urine by Auto (test code = 92173-3) yellow Appearance of Urine (test code = 5767-9) SL cloudy clear A Glucose [Presence] in Urine by Automated test strip (test code = 28897-1) negative negative Bilirubin.total [Mass/volume] in Urine (test code = 1978-6) negative negative Ketones [Mass/volume] in Urine by Automated test strip (test code = 63186-5) negative negative Specific gravity of Urine by Automated test strip (test code = 56874-8) 1.015 1.003-1.030 blood urine (test code = blood urine) trace negative pH of Urine (test code = 2756-5) 7.500 5-9 protein urine (UA) (test code = protein urine (UA)) trace negative Urobilinogen [Presence] in Urine (test code = 55952-8) normal 0.2-1.0 Nitrite [Presence] in Urine by Test strip (test code = 5802-4) negative negative Leukocyte esterase [Presence] in Urine by Automated test strip (test code = 72903-4) negative negative Erythrocytes [#/volume] in Urine by Automated count (test code = 798-9) =1-5 0-5 Leukocytes [#/area] in Urine sediment by Automated count (test code = 11013-3) =6-10 0-5 H Epithelial cells [Presence] in Urine sediment by Light microscopy (test code = 11825-4) =11-25 0-5 H Bacteria identified in Urine by Culture (test code = 630-4) moderate (2 none detect H Casts [#/area] in Urine sediment by Automated count (test code = 61291-4) =6-10 none detect H urine culture added? (test code = urine culture added?) no. contaminated. Amorphous sediment [Presence] in Urine sediment by Light microscopy (test code = 8246-1) trace none seen path casts,U (test code = path casts,U) cellular casts (1-5 none detect A [facility] macro (dipstick) panel - [id number] 10:21:35* Test Item Value Reference Range Interpretation Comme nts Leukocytes (test code = Leukocytes) Negative Nitrite (test code = Nitrite) negative Urobilinogen (test code = Urobilinogen) 2 Protein (test code = Protein) Trace pH (test code = pH) 7.5 Blood (test code = Blood) Non-Hemolyzed: Trace Specific [place] (test code = Specific [place]) 1.020 Ketone (test code = Ketone) Negative Bilirubin (test code = Bilirubin) Negative Glucose (test code = Glucose) Negative Appearance (test code = Appearance) Clear Color (test code = Color) Yellow [facility] (dipstick) panel - [id number] 10:21:35* Test Item Value Reference Range Interpretation Comme nts Leukocytes (test code = Leukocytes) Negative Nitrite (test code = Nitrite) negative Urobilinogen (test code = Urobilinogen) 2 Protein (test code = Protein) Trace pH (test code = pH) 7.5 Blood (test code = Blood) Non-Hemolyzed: Trace Specific [place] (test code = Specific [place]) 1.020 Ketone (test code = Ketone) Negative Bilirubin (test code = Bilirubin) Negative Glucose (test code = Glucose) Negative Appearance (test code = Appearance) Clear Color (test code = Color) Yellow [facility] GroupUrinalysis macro (dipstick) panel - [id number] 10:21:35* Test Item Value Reference Range Interpretation Comme nts Leukocytes (test code = Leukocytes) Negative Nitrite (test code = Nitrite) negative Urobilinogen (test code = Urobilinogen) 2 Protein (test code = Protein) Trace pH (test code = pH) 7.5 Blood (test code = Blood) Non-Hemolyzed: Trace Specific [place] (test code = Specific [place]) 1.020 Ketone (test code = Ketone) Negative Bilirubin (test code = Bilirubin) Negative Glucose (test code = Glucose) Negative Appearance (test code = Appearance) Clear Color (test code = Color) Yellow [facility] GroupUrinalysis macro (dipstick) panel - [id number] 10:21:35* Test Item Value Reference Range Interpretation Comme nts Leukocytes (test code = Leukocytes) Negative Nitrite (test code = Nitrite) negative Urobilinogen (test code = Urobilinogen) 2 Protein (test code = Protein) Trace pH (test code = pH) 7.5 Blood (test code = Blood) Non-Hemolyzed: Trace Specific [place] (test code = Specific [place]) 1.020 Ketone (test code = Ketone) Negative Bilirubin (test code = Bilirubin) Negative Glucose (test code = Glucose) Negative Appearance (test code = Appearance) Clear Color (test code = Color) Yellow [facility] GroupStreptococcus agalactiae DNA [Presence] in Unspecified specimen by Probe and target amplification [id number] 00:00:00* Test Item Value Reference Range Interpretation Comme nts group B streptococcus (gbs) antibiotic resistance by PCR (test code = group B streptococcus (gbs) antibiotic resistance by PCR) positive A [facility] GroupStreptococcus agalactiae DNA [Presence] in Unspecified specimen by Probe and target amplification [id number] 00:00:00* Test Item Value Reference Range Interpretation Comme nts group B streptococcus (gbs) antibiotic resistance by PCR (test code = group B streptococcus (gbs) antibiotic resistance by PCR) positive A [facility] GroupStreptococcus agalactiae DNA [Presence] in Unspecified specimen by Probe and target amplification [id number] 00:00:00* Test Item Value Reference Range Interpretation Comme nts group B streptococcus (gbs) antibiotic resistance by PCR (test code = group B streptococcus (gbs) antibiotic resistance by PCR) positive A [facility] GroupStreptococcus agalactiae DNA [Presence] in Unspecified specimen by Probe and target amplification [id number] 00:00:00* Test Item Value Reference Range Interpretation Comme nts group B streptococcus (gbs) antibiotic resistance by PCR (test code = group B streptococcus (gbs) antibiotic resistance by PCR) positive A [facility]lamydia trachomatis+Neisseria gonorrhoeae DNA [Presence] in Unspecified specimen by Probe and target amplification method 2019-01-14 00:00:00* Test Item Value Reference Range Interpretation Comme nts chlamydia trachomatis by qiana l-time PCR (reflex to azithromycin resistance by pyrosequencing) (test code = chlamydia trachomatis by real-time PCR (reflex to azithromycin resistance by pyrosequencing)) negative neisseria gonorrhoeae by qiana l-time PCR (reflex to antibiotic resistance by molecular analysis) (test code = neisseria gonorrhoeae by real-time PCR (reflex to antibiotic resistance by molecular analysis)) negative [facility]St[facility] agalactiae DNA [Presence] in Unspecified specimen by Probe and target amplification [id number] 00:00:00* Test Item Value Reference Range Interpretation Comme nts group B streptococcus (gbs) by real-time PCR (test code = group B streptococcus (gbs) by real-time PCR) positive A [facility] GroupChlamydia [facility]achomatis+Neisseria gonorrhoeae DNA [Presence] in Unspecified specimen by Probe and target amplification method 2019-01-14 00:00:00* Test Item Value Reference Range Interpretation Comme nts chlamydia trachomatis by qiana l-time PCR (reflex to azithromycin resistance by pyrosequencing) (test code = chlamydia trachomatis by real-time PCR (reflex to azithromycin resistance by pyrosequencing)) negative neisseria gonorrhoeae by qiana l-time PCR (reflex to antibiotic resistance by molecular analysis) (test code = neisseria gonorrhoeae by real-time PCR (reflex to antibiotic resistance by molecular analysis)) negative [facility] GroupStreptococcus agalactiae DNA [Presence] in Unspecified specimen by Probe and target amplification [id number] 00:00:00* Test Item Value Reference Range Interpretation Comme nts group B streptococcus (gbs) by real-time PCR (test code = group B streptococcus (gbs) by real-time PCR) positive A [facility] GroupChlamydia trachomatis+Neisseria gonorrhoeae DNA [Presence] in Unspecified specimen by Probe and target amplification method 2019-01-14 00:00:00* Test Item Value Reference Range Interpretation Comme nts chlamydia trachomatis by qiana l-time PCR (reflex to azithromycin resistance by pyrosequencing) (test code = chlamydia trachomatis by real-time PCR (reflex to azithromycin resistance by pyrosequencing)) negative neisseria gonorrhoeae by qiana l-time PCR (reflex to antibiotic resistance by molecular analysis) (test code = neisseria gonorrhoeae by real-time PCR (reflex to antibiotic resistance by molecular analysis)) negative [facility] GroupStreptococcus agalactiae DNA [Presence] in Unspecified specimen by Probe and target amplification [id number] 00:00:00* Test Item Value Reference Range Interpretation Comme nts group B streptococcus (gbs) by real-time PCR (test code = group B streptococcus (gbs) by real-time PCR) positive A [facility] GroupChlamydia trachomatis+Neisseria gonorrhoeae DNA [Presence] in Unspecified specimen by Probe and target amplification method 2019-01-14 00:00:00* Test Item Value Reference Range Interpretation Comme nts chlamydia trachomatis by qiana l-time PCR (reflex to azithromycin resistance by pyrosequencing) (test code = chlamydia trachomatis by real-time PCR (reflex to azithromycin resistance by pyrosequencing)) negative neisseria gonorrhoeae by qiana l-time PCR (reflex to antibiotic resistance by molecular analysis) (test code = neisseria gonorrhoeae by real-time PCR (reflex to antibiotic resistance by molecular analysis)) negative [facility] GroupStreptococcus agalactiae DNA [Presence] in Unspecified specimen by Probe and target amplification [id number] 00:00:00* Test Item Value Reference Range Interpretation Comme nts group B streptococcus (gbs) by real-time PCR (test code = group B streptococcus (gbs) by real-time PCR) positive A [facility] GroupBlood group antibody screen [Presence] in Serum or Plasma 2019-01-12 08:53:00* Test Item Value Reference Range Interpretation Comme nts Blood group antibody screen [Presence] in Serum or Plasma (test code = 890-4) negative [facility] GroupHIV 1+2 Ab [Presence] in [id number] 08:53:00HIV P24 AgHIV-1/2 [facility]MatagoEn[facility] GroupBlood group antibody screen [Presence] in Serum or [id number] 08:53:00* Test Item Value Reference Range Interpretation Comme nts Blood group antibody screen [Presence] in Serum or Plasma (test code = 890-4) negative [facility] GroupHIV [facility]+2 Ab [Presence] in [id number] 08:53:00HIV P24 AgHIV-1/2 [facility]Mat[facility] GroupBlood group antibody screen [Presence] in Serum or [id number] 08:53:00* Test Item Value Reference Range Interpretation Comme nts Blood group antibody screen [Presence] in Serum or Plasma (test code = 890-4) negative [facility] GroupHIV 1+2 Ab [Presence] in [id number] 08:53:00HIV P24 AgHIV-1/2 AbMatag[facility] GroupBlood group antibody screen [Presence] in Serum or [id number] 08:53:00* Test Item Value Reference Range Interpretation Comme nts Blood group antibody screen [Presence] in Serum or Plasma (test code = 890-4) negative [facility] GroupHIV 1+2 Ab [Presence] in [id number] 08:53:00HIV P24 AgHIV-1/2 AbMatagorda Medical GroupUrinalysis macro (dipstick) panel - Urine 2018-12-28 10:36:37* Test Item Value Reference Range Interpretation Comme nts Leukocytes (test code = Leukocytes) Large Nitrite (test code = Nitrite) negative Urobilinogen (test code = Urobilinogen) 1 Protein (test code = Protein) 30 pH (test code = pH) 7.0 Blood (test code = Blood) Hemolyzed: Trace Specific [place] (test code = Specific [place]) 1.020 Ketone (test code = Ketone) Negative Bilirubin (test code = Bilirubin) Negative Glucose (test code = Glucose) Negative Appearance (test code = Appearance) Clear Color (test code = Color) Yellow [facility] GroupUrinalysis macro (dipstick) panel - [id number] 10:36:37* Test Item Value Reference Range Interpretation Comme nts Leukocytes (test code = Leukocytes) Large Nitrite (test code = Nitrite) negative Urobilinogen (test code = Urobilinogen) 1 Protein (test code = Protein) 30 pH (test code = pH) 7.0 Blood (test code = Blood) Hemolyzed: Trace Specific [place] (test code = Specific [place]) 1.020 Ketone (test code = Ketone) Negative Bilirubin (test code = Bilirubin) Negative Glucose (test code = Glucose) Negative Appearance (test code = Appearance) Clear Color (test code = Color) Yellow [facility] GroupUrinalysis macro (dipstick) panel - [id number] 10:36:37* Test Item Value Reference Range Interpretation Comme nts Leukocytes (test code = Leukocytes) Large Nitrite (test code = Nitrite) negative Urobilinogen (test code = Urobilinogen) 1 Protein (test code = Protein) 30 pH (test code = pH) 7.0 Blood (test code = Blood) Hemolyzed: Trace Specific [place] (test code = Specific [place]) 1.020 Ketone (test code = Ketone) Negative Bilirubin (test code = Bilirubin) Negative Glucose (test code = Glucose) Negative Appearance (test code = Appearance) Clear Color (test code = Color) Yellow [facility] GroupUrinalysis macro (dipstick) panel - [id number] 10:36:37* Test Item Value Reference Range Interpretation Comme nts Leukocytes (test code = Leukocytes) Large Nitrite (test code = Nitrite) negative Urobilinogen (test code = Urobilinogen) 1 Protein (test code = Protein) 30 pH (test code = pH) 7.0 Blood (test code = Blood) Hemolyzed: Trace Specific [place] (test code = Specific [place]) 1.020 Ketone (test code = Ketone) Negative Bilirubin (test code = Bilirubin) Negative Glucose (test code = Glucose) Negative Appearance (test code = Appearance) Clear Color (test code = Color) Yellow [facility] GroupBacteria identified in Urine by [id number] 10:18:00Bacteria Ur CultMatagorda Medical GroupBacteria identified in Urine by [id number] 10:18:00Bacteria Ur CultMatagorda Medical GroupUrinalysis macro (dipstick) panel - [id number] 09:05:23* Test Item Value Reference Range Interpretation Comme nts Leukocytes (test code = Leukocytes) Large Nitrite (test code = Nitrite) negative Urobilinogen (test code = Urobilinogen) .2 Protein (test code = Protein) Negative pH (test code = pH) 8.0 Blood (test code = Blood) Hemolyzed: Trace Specific [place] (test code = Specific [place]) 1.020 Ketone (test code = Ketone) Negative Bilirubin (test code = Bilirubin) Negative Glucose (test code = Glucose) Negative Appearance (test code = Appearance) Clear Color (test code = Color) Dark Yellow [facility]Urinal[facility] macro (dipstick) panel - [id number] 09:05:23* Test Item Value Reference Range Interpretation Comme nts Leukocytes (test code = Leukocytes) Large Nitrite (test code = Nitrite) negative Urobilinogen (test code = Urobilinogen) .2 Protein (test code = Protein) Negative pH (test code = pH) 8.0 Blood (test code = Blood) Hemolyzed: Trace Specific [place] (test code = Specific [place]) 1.020 Ketone (test code = Ketone) Negative Bilirubin (test code = Bilirubin) Negative Glucose (test code = Glucose) Negative Appearance (test code = Appearance) Clear Color (test code = Color) Dark Yellow [facility]Urinal[facility] macro (dipstick) panel - [id number] 09:05:23* Test Item Value Reference Range Interpretation Comme nts Leukocytes (test code = Leukocytes) Large Nitrite (test code = Nitrite) negative Urobilinogen (test code = Urobilinogen) .2 Protein (test code = Protein) Negative pH (test code = pH) 8.0 Blood (test code = Blood) Hemolyzed: Trace Specific [place] (test code = Specific [place]) 1.020 Ketone (test code = Ketone) Negative Bilirubin (test code = Bilirubin) Negative Glucose (test code = Glucose) Negative Appearance (test code = Appearance) Clear Color (test code = Color) Dark Yellow [facility]Urinalysis macro (dipstick) panel - [id number] 09:05:23* Test Item Value Reference Range Interpretation Comme nts Leukocytes (test code = Leukocytes) Large Nitrite (test code = Nitrite) negative Urobilinogen (test code = Urobilinogen) .2 Protein (test code = Protein) Negative pH (test code = pH) 8.0 Blood (test code = Blood) Hemolyzed: Trace Specific [place] (test code = Specific [place]) 1.020 Ketone (test code = Ketone) Negative Bilirubin (test code = Bilirubin) Negative Glucose (test code = Glucose) Negative Appearance (test code = Appearance) Clear Color (test code = Color) Dark Yellow [facility] GroupUrinalysis complete panel - [id number] 11:45:00* Test Item Value Reference Range Interpretation Comme nts Color of Urine by Auto (test code = 76997-2) yellow Appearance of Urine (test code = 5767-9) SL cloudy clear A Glucose [Presence] in Urine by Automated test strip (test code = 85243-3) negative negative Bilirubin.total [Mass/volume] in Urine (test code = 1978-6) negative negative Ketones [Mass/volume] in Urine by Automated test strip (test code = 13057-3) negative negative Specific gravity of Urine by Automated test strip (test code = 57676-0) 1.032 1.003-1.030 H blood urine (test code = blood urine) =1 negative H pH of Urine (test code = 2756-5) 7.000 5-9 protein urine (UA) (test code = protein urine (UA)) =1+ (70 negative H Urobilinogen [Presence] in Urine (test code = 63152-7) =2.0 0.2-1.0 H Nitrite [Presence] in Urine by Test strip (test code = 5802-4) negative negative Leukocyte esterase [Presence] in Urine by Automated test strip (test code = 18635-1) =4 negative H Erythrocytes [#/volume] in Urine by Automated count (test code = 798-9) =6-10 0-5 H Leukocytes [#/area] in Urine sediment by Automated count (test code = 69465-7) >50 0-5 H Epithelial cells [Presence] in Urine sediment by Light microscopy (test code = 00828-4) =11-14 0-5 Bacteria identified in Urine by Culture (test code = 630-4) moderate (2 none detect H Casts [#/area] in Urine sediment by Automated count (test code = 89260-5) =20-29 none detect H urine culture added? (test code = urine culture added?) no. contaminated. Mucus [Presence] in Urine by Automated (test code = 23853-1) =1 none detect path casts,U (test code = path casts,U) coarse granular 6-10 none detect A [facility] GroupBacteria identified in Urine by [id number] 11:45:00Bacteria Ur CultMatagorda Medical GroupUrinalysis complete panel - Urine 2018-12-06 11:45:00* Test Item Value Reference Range Interpretation Comme nts Color of Urine by Auto (test code = 23632-5) yellow Appearance of Urine (test code = 5767-9) SL cloudy clear A Glucose [Presence] in Urine by Automated test strip (test code = 31941-4) negative negative Bilirubin.total [Mass/volume] in Urine (test code = 1978-6) negative negative Ketones [Mass/volume] in Urine by Automated test strip (test code = 79718-4) negative negative Specific gravity of Urine by Automated test strip (test code = 34764-1) 1.032 1.003-1.030 H blood urine (test code = blood urine) =1 negative H pH of Urine (test code = 2756-5) 7.000 5-9 protein urine (UA) (test code = protein urine (UA)) =1+ (70 negative H Urobilinogen [Presence] in Urine (test code = 70613-9) =2.0 0.2-1.0 H Nitrite [Presence] in Urine by Test strip (test code = 5802-4) negative negative Leukocyte esterase [Presence] in Urine by Automated test strip (test code = 21195-5) =4 negative H Erythrocytes [#/volume] in Urine by Automated count (test code = 798-9) =6-10 0-5 H Leukocytes [#/area] in Urine sediment by Automated count (test code = 84328-1) >50 0-5 H Epithelial cells [Presence] in Urine sediment by Light microscopy (test code = 20214-9) =11-14 0-5 Bacteria identified in Urine by Culture (test code = 630-4) moderate (2 none detect H Casts [#/area] in Urine sediment by Automated count (test code = 58641-8) =20-29 none detect H urine culture added? (test code = urine culture added?) no. contaminated. Mucus [Presence] in Urine by Automated (test code = 35185-9) =1 none detect path casts,U (test code = path casts,U) coarse granular 6-10 none detect A [facility] GroupBacteria identified in Urine by [id number] 11:45:00Bacteria Ur CultMatarda Medical GroupUrinalysis complete panel - Urine 2018-12-06 11:45:00* Test Item Value Reference Range Interpretation Comme nts Color of Urine by Auto (test code = 75056-1) yellow Appearance of Urine (test code = 5767-9) SL cloudy clear A Glucose [Presence] in Urine by Automated test strip (test code = 69285-1) negative negative Bilirubin.total [Mass/volume] in Urine (test code = 1978-6) negative negative Ketones [Mass/volume] in Urine by Automated test strip (test code = 15900-1) negative negative Specific gravity of Urine by Automated test strip (test code = 65330-1) 1.032 1.003-1.030 H blood urine (test code = blood urine) =1 negative H pH of Urine (test code = 2756-5) 7.000 5-9 protein urine (UA) (test code = protein urine (UA)) =1+ (70 negative H Urobilinogen [Presence] in Urine (test code = 80453-2) =2.0 0.2-1.0 H Nitrite [Presence] in Urine by Test strip (test code = 5802-4) negative negative Leukocyte esterase [Presence] in Urine by Automated test strip (test code = 56969-8) =4 negative H Erythrocytes [#/volume] in Urine by Automated count (test code = 798-9) =6-10 0-5 H Leukocytes [#/area] in Urine sediment by Automated count (test code = 81534-2) >50 0-5 H Epithelial cells [Presence] in Urine sediment by Light microscopy (test code = 60125-5) =11-14 0-5 Bacteria identified in Urine by Culture (test code = 630-4) moderate (2 none detect H Casts [#/area] in Urine sediment by Automated count (test code = 98012-8) =20-29 none detect H urine culture added? (test code = urine culture added?) no. contaminated. Mucus [Presence] in Urine by Automated (test code = 29371-1) =1 none detect path casts,U (test code = path casts,U) coarse granular 6-10 none detect A [facility]Bacteria identified in Urine by [id number] 11:45:00Bacteria Ur [facility]
--- NOTE | 2023-08-08 12:05 | RAD REPORT ---
EXAM DESCRIPTION: RAD - Foot Left 3 View - 08/08/2023 11:56 am CLINICAL HISTORY: Left Foot pain FINDINGS: Soft tissue swelling first phalanx with possible avulsion of the nail bed. No fracture or dislocation is seen.
--- NOTE | 2023-08-08 12:34 | EDPHYS ---
Physician Documentation [facility] Name: Betty Sheets Age: 27 yrs Sex: Female : 1995 Arrival Date: 08/08/2023 Time: 10:45 Bed 10 Private MD: ED Physician Sawyer Desai HPI: 08/08 11:30 This 27 yrs old Black Female presents to ER via Ambulatory with complaints of Toe sb4 Injury. 11:31 The patient presents with an injury. The complaints affect the left foot and Left first sb4 toenail. Context: The problem was sustained at home, resulted from the patient kicking, a solid object, the patient can partially bear weight, the patient is able to ambulate. Onset: The symptoms/episode began/occurred last night. Modifying factors: The symptoms are alleviated by nothing, the symptoms are aggravated by weight bearing. accidentally kicked a piece of furniture, causing the acrylic nail on her big toe to lift. Historical: - Allergies: 11:10 No Known Allergies; bp - PMHx: 11:10 Hypertension; mitral valve prolapse; bp - Immunization history:: Adult Immunizations up to date. - Social history:: Smoking status: Patient denies any tobacco usage or history of. ROS: 11:31 MS/extremity: Positive for pain, of the Left first toenail, sb4 11:31 Constitutional: Negative for fever, chills, and weight loss, 11:31 All other systems are negative, Exam: 11:31 Constitutional: This is a well developed, well nourished patient who is awake, alert, sb4 and in no acute distress. Head/Face: Normocephalic, atraumatic. Eyes: Extra-ocular motions intact. Periorbital areas with no swelling, redness, or edema. ENT: Mucous membranes moist. MS/ Extremity: Pulses equal, no cyanosis. Neurovascular intact. Full, normal range of motion. Neuro: Awake and alert, GCS 15, oriented to person, place, time, and situation. Motor strength 5/5 in all extremities. Sensory grossly intact. 11:31 Skin: injury, onycholysis left big toe, Vital Signs: 11:07 BP 144 / 102; Pulse 60; Resp 16; Temp 98; Pulse Ox 100% ; Weight 99.79 kg; Height 5 ft. bp 11 in. ; 12:55 BP 151 / 104; Pulse 75; Resp 18; Pulse Ox 98% ; Pain 0/10; nj1 11:07 Body Mass Index 30.68 (99.79 kg, 180.34 cm) bp 12:55 Pain Scale: Adult nj1 MDM: 11:04 Patient medically screened. sb4 11:31 Differential diagnosis: fracture, sprain. sb4 12:33 Data reviewed: vital signs, nurses notes, I have discussed the patient's sb4 presentation/case with the attending Emergency Department Physician; and as a result, I will discharge patient. Counseling: I had a detailed discussion with the patient and/or guardian regarding the historical points, exam findings, and any diagnostic results supporting the discharge/admit diagnosis, radiology results, the need for outpatient follow up, a care navigator, to return to the emergency department if symptoms worsen or persist or if there are any questions or concerns that arise at home. 08/08 11:10 Order name: Foot Left 3 View XRAY; Complete Time: 12:05 sb4 08/08 12:33 Order name: Wound Care; Complete Time: 12:57 sb4 08/08 12:33 Order name: Wound dressing; Complete Time: 12:57 sb4 Administered Medications: 11:32 Drug: Bupivacaine Infiltration (0.5 %) 10 ml 10 ml Infiltration once Volume: 10 ml; bp Route: Infiltration; 11:32 Drug: Lidocaine Infiltration (1 %) 5 ml 5 ml Infiltration once; to bedside Volume: 5 bp ml; Route: Infiltration; Disposition: 16:49 I was immediately available on-site in the Emergency Department for consultation in the ms3 care of the patient. Disposition Summary: 08/08/23 12:34 Discharge Ordered Notes: Location: Home sb4 Problem: new sb4 Symptoms: have improved sb4 Condition: Stable sb4 Diagnosis - Onycholysis sb4 Followup: sb4 - With: Howard Mccormick DPM - When: As needed - Reason: Recheck today's complaints, Re-evaluation by your physician Discharge Instructions: - Discharge Summary Sheet sb4 - Fingernail or Toenail Removal, Adult sb4 Forms: - Medication Reconciliation Form sb4 - Thank You Letter sb4 - Antibiotic Education sb4 - Prescription Opioid Use sb4 - Patient Portal Instructions sb4 - Leadership Thank You Letter sb4 Prescriptions: - terbinafine HCl 250 mg Oral tablet - take 1 tablet ORAL route daily; 14 tablet; Refills: 0, Product Selection sb4 Permitted Signatures: Dispatcher [employer] Ranjit Hensley, MELANIE RN Sawyer Chapa DO DO ms3 Lizeth Ramírez PA-C PA-C sb4 Corrections: (The following items were deleted from the chart) 11:33 11:31 Skin: injury, toe nail lifted left big toe, sb4 sb4
--- NOTE | 2023-08-08 12:34 | ER ---
Nurse's Notes [facility] Name: Betty Sheets Age: 27 yrs Sex: Female : 1995 Arrival Date: 08/08/2023 Time: 10:45 Bed 10 Private MD: Diagnosis: Onycholysis Presentation: 08/08 11:07 Chief complaint: Patient states: HIT LEFT GREAT TOE ON DRESSER Y/D, INJURED TOE NAIL. bp Coronavirus screen: At this time, the client does not indicate any symptoms associated with coronavirus-19. Ebola Screen: No symptoms or risks identified at this time. Initial Sepsis Screen: Does the patient meet any 2 criteria? No. Patient's initial sepsis screen is negative. Does the patient have a suspected source of infection? No. Patient's initial sepsis screen is negative. Risk Assessment: Do you want to hurt yourself or someone else? Patient reports no desire to harm self or others. Onset of symptoms is unknown. 11:07 Method Of Arrival: Ambulatory bp 11:07 Acuity: NAA 3 bp Triage Assessment: 11:10 General: Appears uncomfortable, Behavior is calm, cooperative, appropriate for age. bp Pain: Complains of pain in Left first toenail. Historical: - Allergies: 11:10 No Known Allergies; bp - PMHx: 11:10 Hypertension; mitral valve prolapse; bp - Immunization history:: Adult Immunizations up to date. - Social history:: Smoking status: Patient denies any tobacco usage or history of. Screenin:24 [facility] ED Fall Risk Assessment (Adult) Score/Fall Risk Level 0 - 2 = Low Risk [facility] Oriented to surroundings, Maintained a safe environment, Hourly rounding (assess needs \T\ fall precautionary measures) done. Abuse screen: Denies threats or abuse. Denies injuries from another. Nutritional screening: No deficits noted. Tuberculosis screening: No symptoms or risk factors identified. Assessment: 12:21 Reassessment: Patient appears in no apparent distress at this time. No changes from [facility] previously documented assessment. PA in room with patient. 13:01 Reassessment: Patient appears in no apparent distress at this time. No changes from [facility] previously documented assessment. Patient is alert, oriented x 3, equal unlabored respirations, skin warm/dry/pink. Vital Signs: 11:07 BP 144 / 102; Pulse 60; Resp 16; Temp 98; Pulse Ox 100% ; Weight 99.79 kg; Height 5 ft. bp 11 in. ; 12:55 BP 151 / 104; Pulse 75; Resp 18; Pulse Ox 98% ; Pain 0/10; nj1 11:07 Body Mass Index 30.68 (99.79 kg, 180.34 cm) bp 12:55 Pain Scale: Adult [facility] ED Course: 10:50 Patient arrived in ED. mg5 10:52 Lizeth Ramírez PA-C is PHCP. sb4 10:52 Sawyer Desai DO is Attending Physician. sb4 11:09 Triage completed. bp 11:10 Arm band placed on. bp 11:38 Zuly Bob, RN is Primary Nurse. nj1 11:57 Foot Left 3 View XRAY In Process Unspecified. EDMS 12:24 Patient has correct armband on for positive identification. Bed in low position. Call [facility] light in reach. Provided Education on:. 12:34 Howard Mccormick DPM is Referral Physician. sb4 12:50 Wound care: located on Left first toenail was dressed with Xeroform, non adherent [facility] dressing, coban, Patient tolerated well. 13:00 No provider procedures requiring assistance completed. Patient did not have IV access [facility] during this emergency room visit. Administered Medications: 11:32 Drug: Bupivacaine Infiltration (0.5 %) 10 ml 10 ml Infiltration once Volume: 10 ml; bp Route: Infiltration; 11:32 Drug: Lidocaine Infiltration (1 %) 5 ml 5 ml Infiltration once; to bedside Volume: 5 bp ml; Route: Infiltration; Medication: 13:00 VIS not applicable for this client. nj Outcome: 12:34 Discharge ordered by . sb4 13:00 Discharged to home ambulatory, nj1 13:00 Condition: stable 13:00 Discharge instructions given to patient, Instructed on discharge instructions, follow up and referral plans. medication usage, wound care, Demonstrated understanding of instructions, follow-up care, medications, wound care, Prescriptions given X 1, 13:02 Patient left the ED. nj1 Signatures: Dispatcher [employer] EDMS Ranjit Bryant RN RN bp Brown, Sophia, PA-C PA-C sb4 Zuly Bob, MELANIE RN [facility] Amisha Noland mg5
[2023-08-08 14:38] VITALS: BP 151/104; TEMP 98; O2SAT 98
== END ==
LOC: ER 10:45
DX: L60.1 Onycholysis (principal)
CPT/HCPCS: J2001